=== PATIENT | male | born 1985 | race African-American/Black ===

== ENCOUNTER 2018-09-17 22:38 | Emergency (ER) | payer SELFPAY ==
[~2018-09-17] VITALS: Ht 180.3 cm; Wt 74.1 kg
[2018-09-17 22:41] VITALS: BP 119/80
[2018-09-17] MEDS ORDERED: LIDOCAINE-MPF 1%, 5ML ONE (22:52)
[2018-09-17] MEDS ORDERED: LIDOCAINE-MPF 1%, 5ML INFIL ONE (23:00)
[2018-09-17] MEDS ORDERED: BACITRACIN ZINC OINT 500U/GM, 0.9 GM ONE (23:28)
--- NOTE | 2018-09-17 23:36 | NUR ---
WOUND CARE PROVIDED. DC EDUCATION PROVIDED, PT DEMONSTRATES UNDERSTANDING. PT AMBULATED STEADILY TO DC WITH RN
== END 2018-09-17 23:38 | disposition home or self-care (01) ==
LOC: ED 23:23
DX: S61.512A Laceration without foreign body of left wrist, initial encounter (principal); X58.XXXA Exposure to other specified factors, initial encounter; Y93.89 Activity, other specified; Y92.098 Other place in other non-institutional residence as the place of occurrence of the external cause; Y99.8 Other external cause status
CPT/HCPCS: 12041; 99283

== ENCOUNTER 2019-04-23 16:23 | Emergency (ER) | payer MEDICAID, OTHER ==
[~2019-04-23] VITALS: Ht 180.3 cm; Wt 72.4 kg
[2019-04-23 16:52] VITALS: BP 136/97
[2019-04-23] MEDS ORDERED: DEXAMETHASONE 4 MG TABLET PO STA (17:39)
[2019-04-23] MEDS ORDERED: DEXAMETHASONE 4 MG TABLET ONE (17:40)
--- NOTE | 2019-04-23 18:30 | NUR ---
Patient given discharge instructions and Rx, they have confirmed that they understand the instructions. Patient ambulatory with steady gait.
== END 2019-04-23 18:32 | disposition home or self-care (01) ==
LOC: ED 18:20
DX: J15.9 Unspecified bacterial pneumonia (principal); R50.81 Fever presenting with conditions classified elsewhere; M79.10 Myalgia, unspecified site; N28.9 Disorder of kidney and ureter, unspecified; F17.210 Nicotine dependence, cigarettes, uncomplicated
CPT/HCPCS: 71046; 99283; 99285; 99406